=== PATIENT | male | born 1980 | race Caucasian/White ===

== ENCOUNTER → 2017-12-03 | Day surgery (SDC) | payer OTHER ==
[~2017-12-03] MED LIST: Adacel (T-DAP) 0.5 ML VIAL ONE; Bupivacaine PF 0.5% 30 ML VIAL ONE; CEFAZOLIN 1 GM, Syringe 2.5 ML in Sterile Water 7.5 ML SLOW IVP SCH; Fentanyl 100 MCG/2 ML VIAL ONE; Lidocaine 1% PF 5 ML VIAL ONE; PROPOFOL 200 MG/20 ML VIAL ONE
--- NOTE | 2017-12-03 18:01 | RAD ---
THREE VIEWS LEFT HAND: 12/03/17 HISTORY: Thumb injury. Pain. COMPARISON: None. FINDINGS: There is a displaced horizontally oriented fracture involving the proximal phalanx of the first digit . There is associated soft tissue swelling deformity. There is a linear density projecting over the lateral soft tissues at the level of the fifth metacarp al. Correlate for foreign body. No additional fractures. IMPRESSION: 1. Foreign body as above. 2. Left thumb fracture as above. POS: [facility]
[2017-12-03 18:45] LABS: #Basophils 0.1 thou/uL (0.0-0.2); #Eosinphils 0.1 thou/uL (0.0-0.7); #Lymphocytes 2.1 thou/uL (1.20-3.40); #Monocytes 0.8 thou/uL (0.11-0.59); #Neutrophils 4.9 thou/uL (1.40-6.50); %Basophils 0.8 % (0.0-1.0); %Monocytes 9.6 % (0.0-10.0); %Neutrophils 62.6 % (42.0-75.0); Hemoglobin 16.2 g/dL (14.0-18.0); Mean Corpuscular Hemoglobin 29.4 pg (27.0-31.0); Mean Corpuscular Volume 86.6 fl (80.0-94.0); Mean Platelet Volume 6.5 fL (7.4-10.4); Platelet Count 233 thou/uL (130-400); RBC Distribution Width 12.8 % (11.5-14.5); White Blood Cell (WBC) Count 7.9 thou/uL (4.8-10.8)
[2017-12-03 19:21] LABS: ALT (SGPT) 64 U/L (8-55); AST (SGOT) 37 U/L (5-34); Albumin 4.8 g/dL (3.5-5.0); Alkaline Phosphatase 66 U/L (40-150); Anion Gap 15 mmol/L (10-20); BUN (Urea Nitrogen) 18 mg/dL (8.9-20.6); Bilirubin, Total 0.7 mg/dL (0.2-1.2); Calc. Creatinine Clearance 0 mL/min (70-130); Calcium 9.3 mg/dL (7.8-10.44); Carbon Dioxide 20 mmol/L (22-29); Chloride 108 mmol/L (98-107); Estimated GFR-MDRD 66; Globulin 2.7 g/dL (2.4-3.5); Glucose 85 mg/dL (70-105); Potassium 3.9 mmol/L (3.5-5.1); Protein, Total 7.5 g/dL (6.0-8.3); Sodium 139 mmol/L (136-145)
--- NOTE | 2017-12-03 21:52 | RAD ---
INTRAOPERATIVE FLUOROSCOPY 12/03/17 HISTORY: Thumb fracture. Pinning. FINDINGS: two intraoperative fluoroscopic views are submitted for interpretation. There are two pins that trave rse the proximal phalanx of the left thumb. IMPRESSION: Fluoroscopic as above. POS: [facility]
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
== END ==
LOC: ERS 17:22 → SDC/OP 19:56
PROVIDERS: ATTEND Orthopaedic Surgery
PROC: 0PSS34Z Reposition Left Thumb Phalanx with Internal Fixation Device, Percutaneous Approach (ICD-10-PCS; principal; 2017-12-03)
DX: S67.02XA Crushing injury of left thumb, initial encounter (principal); S62.512B Displaced fracture of proximal phalanx of left thumb, initial encounter for open fracture; I10 Essential (primary) hypertension; I73.00 Raynaud's syndrome without gangrene; G62.9 Polyneuropathy, unspecified; G43.909 Migraine, unspecified, not intractable, without status migrainosus; F90.9 Attention-deficit hyperactivity disorder, unspecified type; E78.5 Hyperlipidemia, unspecified; E66.9 Obesity, unspecified; Z79.899 Other long term (current) drug therapy; Z88.8 Allergy status to other drugs, medicaments and biological substances; W20.8XXA Other cause of strike by thrown, projected or falling object, initial encounter
CPT/HCPCS: 76000; 80053; 85025; 87040; 90471; 90715; 96374; A4216; G0390; J0690; J2001; J2704; J3010; S0020

== ENCOUNTER 2022-03-03 08:47 | Outpatient (CLI) | payer OTHER | END 2022-03-03 08:48 | disposition home or self-care (01) | LOC: SCSMRI 08:47 | PROVIDERS: ATTEND Nurse Practitioner Family | DX: S89.92XD Unspecified injury of left lower leg, subsequent encounter (principal); R60.0 Localized edema; M70.42 Prepatellar bursitis, left knee | CPT/HCPCS: 74018 ==